=== PATIENT | female | born 1995 | race Two or more races ===

== ENCOUNTER 2016-11-30 12:21 | Observation (INO) | payer MEDICAID ==
[~2016-11-30] VITALS: Ht 165.1 cm; Wt 90.7 kg
[~2016-11-30 12:21] MED LIST: ACET-1304; IBUP-781
[2016-11-30] MEDS ORDERED: SODIUM CHLORIDE 0.9% 1,000 ML IVB ONE (12:46)
[2016-11-30 13:48] LABS: Basophils # (auto) 0 uL; Basophils % (auto) 0.1 % (0.0-2.0); Eosinophils # (auto) 0 uL; Eosinophils % (auto) 0.1 % (0.0-7.0); Hematocrit 37.3 % (36.0-46.0); Hemoglobin 12.4 g/dL (12.2-16.2); Lymphocytes % (auto) 11.3 % (10.0-50.0); Mean Corpuscular Hemoglobin 30.5 pg (28.0-32.0); Mean Corpuscular Hgb Conc. 33.3 g/dL (32.0-36.0); Mean Corpuscular Volume 91.6 fL (80.0-100.0); Mean Platelet Volume 8.2 fL (7.4-10.4); Monocytes # (auto) 0.5 uL; Monocytes % (auto) 5.5 % (0.0-12.0); Neutrophils # (auto) 7.2 uL; Platelet Count (auto) 350 10^3/uL (140-450); Red Cell Distribution Width 13.9 % (11.6-16.0); White Blood Cell 8.7 10^3/uL (4.4-10.8)
[2016-11-30 14:07] LABS: Acetaminophen < 2.0 ug/mL (10-30); Salicylate < 1.7 mg/dL (2.8-20.0)
[2016-11-30 14:09] LABS: Albumin 3.7 g/dL (3.4-5.0); Alkaline Phosphatase 74 U/L (45-117); Anion Gap 10 (5-15); Aspartate Aminotransferase 16 U/L (15-37); BUN/Creatinine Ratio 20.6; Bilirubin, Total 0.4 mg/dL (0.2-1.0); Blood Urea Nitrogen 13 mg/dL (7-18); Calcium 8.4 mg/dL (8.5-10.1); Carbon Dioxide 23 mmol/L (21-32); Chloride 109 mmol/L (98-107); GFR African American 155 mL/min; GFR Non-African American 128 mL/min; Glucose 85 mg/dL (74-106); Magnesium 2.4 mg/dL (1.6-2.6); Potassium 4.1 mmol/L (3.5-5.1); Sodium 142 mmol/L (136-145); Total Protein 6.8 g/dL (6.4-8.2)
[2016-11-30 14:16] LABS: INR 1.05 (0.9-1.15); Partial Thromboplastin Time 24.3 sec (22.64-33.71); Prothrombin Time 11.4 sec (9.37-12.3)
[2016-11-30 16:39] LABS: Urine Bilirubin Negative (Negative); Urine Blood Negative /uL (Negative); Urine Color Yellow (Yellow); Urine Glucose Normal (Normal); Urine Mucus FEW (None Seen); Urine Nitrite Negative (Negative); Urine RBC 2 /hpf (0 - 4); Urine Squamous Epithelial Cell FEW /hpf (<5); Urine pH 6.5 (5.0-8.0)
[2016-11-30 16:41] LABS: Urine Ketone 3+ (Negative)
[2016-11-30 18:17] VITALS: BP 97/63
== END 2016-11-30 20:06 | disposition short-term general hospital (02) | DRG 351 ==
LOC: EDBD 12:21 → ER 12:27 → OVERFLOW 12:47 → ER 20:06
PROVIDERS: ADMIT Family Medicine; ATTEND Family Medicine
DX: T14.91 Suicide attempt (principal); N30.00 Acute cystitis without hematuria; T43.212A Poisoning by selective serotonin and norepinephrine reuptake inhibitors, intentional self-harm, initial encounter; N39.0 Urinary tract infection, site not specified; F32.9 Major depressive disorder, single episode, unspecified; F41.9 Anxiety disorder, unspecified; Y92.89 Other specified places as the place of occurrence of the external cause
CPT/HCPCS: 36415; 71010; 80053; 80307; 80320; 80329; 81001; 82962; 83735; 84702; 85025; 85610; 85730; 93005; 96360; 99285; G0378; J7030

== ENCOUNTER 2016-12-10 11:54 | Emergency (ER) | payer MEDICAID ==
[~2016-12-10] VITALS: Ht 157.5 cm; Wt 90.3 kg
[2016-12-10 13:38] LABS: Urine RBC None Seen /hpf (0 - 4)
[2016-12-10 13:54] LABS: Basophils # (auto) 0 uL; Basophils % (auto) 0.3 % (0.0-2.0); Eosinophils # (auto) 0 uL; Eosinophils % (auto) 0.1 % (0.0-7.0); Hematocrit 41.9 % (36.0-46.0); Hemoglobin 13.9 g/dL (12.2-16.2); Lymphocytes # (auto) 1.9 uL; Lymphocytes % (auto) 22.5 % (10.0-50.0); Mean Corpuscular Hemoglobin 30.3 pg (28.0-32.0); Mean Corpuscular Hgb Conc. 33.2 g/dL (32.0-36.0); Mean Corpuscular Volume 91.3 fL (80.0-100.0); Mean Platelet Volume 8.4 fL (7.4-10.4); Monocytes # (auto) 0.4 uL; Monocytes % (auto) 5.1 % (0.0-12.0); Platelet Count (auto) 365 10^3/uL (140-450); Red Cell Distribution Width 13.5 % (11.6-16.0); White Blood Cell 8.4 10^3/uL (4.4-10.8)
[2016-12-10 13:57] LABS: Urine Bilirubin Negative (Negative); Urine Blood Negative /uL (Negative); Urine Color Yellow (Yellow); Urine Glucose Normal (Normal); Urine Ketone TRACE (Negative); Urine Mucus FEW (None Seen); Urine Nitrite Negative (Negative); Urine Squamous Epithelial Cell FEW /hpf (<5); Urine Urobilinogen Normal (Negative); Urine pH 6.5 (5.0-8.0)
[2016-12-10 14:02] LABS: BUN/Creatinine Ratio 11.8; Bilirubin, Total 0.5 mg/dL (0.2-1.0); Calcium 8.6 mg/dL (8.5-10.1); Potassium 3.9 mmol/L (3.5-5.1); Total Protein 7.4 g/dL (6.4-8.2)
[2016-12-10 17:37] VITALS: BP 108/68
== END 2016-12-10 19:08 | disposition home or self-care (01) ==
LOC: ER 12:18
DX: J03.90 Acute tonsillitis, unspecified (principal); F14.10 Cocaine abuse, uncomplicated; Z79.899 Other long term (current) drug therapy
CPT/HCPCS: 36415; 80053; 81001; 81025; 85025

== ENCOUNTER 2017-04-01 23:06 | Emergency (ER) | payer MEDICAID ==
[~2017-04-01] VITALS: Ht 157.5 cm; Wt 95.3 kg
[2017-04-01 23:17] VITALS: BP 141/79
[2017-04-02] MEDS ORDERED: traMADol HCL 50 MG TAB PO ONE (03:00)
[2017-04-02] MEDS ORDERED: cefTRIAXone SOD 1,000 MG VL IM ONE (03:00)
[2017-04-02] MEDS ORDERED: TETANUS-DIPTH-ACEL PERTUSSIS 0.5ML SYRG IM ONE (03:00)
== END 2017-04-02 03:53 | disposition home or self-care (01) ==
LOC: ER 23:08
DX: S91.332A Puncture wound without foreign body, left foot, initial encounter (principal); L03.116 Cellulitis of left lower limb; Z79.899 Other long term (current) drug therapy; W54.0XXA Bitten by dog, initial encounter; Y93.89 Activity, other specified; Y92.89 Other specified places as the place of occurrence of the external cause; Y99.8 Other external cause status
CPT/HCPCS: 73610; 81025; 90471; 90715; 96372; 99285; J0696

== ENCOUNTER 2024-03-02 10:33 | Emergency (ER) | payer MEDICAID ==
[~2024-03-02] VITALS: Ht 157.5 cm; Wt 110.6 kg
[2024-03-02 11:01] VITALS: BP 130/75; PULSE 77; RESP 18; TEMP 99; O2SAT 98
[2024-03-02 11:48] LABS: Basophils # (auto) 0 10 ^3/uL (0-0.2); Basophils % (auto) 0.4 % (0.0-2.0); Eosinophils # (auto) 0.1 10 ^3/uL (0-0.8); Eosinophils % (auto) 1.2 % (0.0-7.0); Hematocrit 37.8 % (36.0-46.0); Hemoglobin 13.1 g/dL (12.2-16.2); Lymphocytes # (auto) 1.9 10 ^3/uL (0.4-5.4); Lymphocytes % (auto) 23.4 % (10.0-50.0); Mean Corpuscular Hemoglobin 31.3 pg (28.0-32.0); Mean Corpuscular Hgb Conc. 34.7 g/dL (32.0-36.0); Monocytes # (auto) 0.4 10 ^3/uL (0-1.3); Monocytes % (auto) 5.3 % (0.0-12.0); Neutrophils # (auto) 5.7 10 ^3/uL (1.6-8.6); Neutrophils % (auto) 69.7 % (37.0-80.0); Nucleated Red Blood Cells % 0.1 %; Platelet Count (auto) 299 10^3/uL (140-450); Red Blood Cells 4.21 10^6/uL (4.0-5.20); Red Cell Distribution Width 13.8 % (11.8-14.3); White Blood Cell 8.2 10^3/uL (4.4-10.8)
[2024-03-02 12:23] LABS: Urine Bacteria FEW /hpf (None Seen); Urine Blood Negative /uL (Negative); Urine Clarity Turbid (Clear); Urine Color Light-Yellow (Yellow); Urine Protein, UAD Negative (Negative); Urine Urobilinogen Normal (Negative); Urine WBC 6 /hpf (0 - 5); Urine WBC Clumps PRESENT /hpf (None Seen)
== END 2024-03-02 13:12 | disposition home or self-care (01) ==
LOC: ER 10:33
DX: O20.0 Threatened abortion (principal); R10.2 Pelvic and perineal pain; Z3A.13 13 weeks gestation of pregnancy
CPT/HCPCS: 36415; 76801; 81001; 84702; 85025